=== PATIENT | male | born 1990 | race Caucasian/White ===

== ENCOUNTER 2021-12-06 15:45 | Emergency (ER) | payer OTHER ==
[2021-12-06 16:25] VITALS: BP 140/87; PULSE 93; TEMP 98.7; BMI 22.1
== END 2021-12-06 16:39 | disposition home or self-care (01) ==
LOC: FER 15:45
PROC: 0HQFXZZ Repair Right Hand Skin, External Approach (ICD-10-PCS; principal; 2021-12-06)
DX: S61.312A Laceration without foreign body of right middle finger with damage to nail, initial encounter (principal); W53.21XA Bitten by squirrel, initial encounter
CPT/HCPCS: 99282-25